=== PATIENT | female | born 1995 | race African-American/Black ===

== ENCOUNTER 2024-04-14 18:35 | Inpatient (IN) | payer OTHER ==
[~2024-04-14] VITALS: Ht 175.3 cm; Wt 72.6 kg
[2024-04-14 18:37] VITALS: O2SAT 97
[2024-04-14] MEDS: ONDANSETRON HCL 4MG/2ML INJ IV STA (19:50)
[2024-04-14] MEDS: SODIUM CHLORIDE 0.9% 1,000 ML IV ONE (19:50)
[2024-04-14] MEDS: KETOROLAC 30MG/ML VIAL IV STA (19:50)
[2024-04-14] MEDS: MORPHINE SULFATE 4 MG/ML INJ (FOR IV/IM USE) IV ONE (21:57)
[2024-04-14] MEDS: METOCLOPRAMIDE HCL 10MG/2ML VIAL IV ONE (22:00)
[2024-04-14 22:06] LABS: BASOPHILS % 0.2 % (0.0-2.0); HEMOGLOBIN. 9.8 g/dL (12.0-16.0); LYMPHOCYTES % 11.9 % (20.0-50.0); MEAN CORPUSCULAR HEMOGLOBIN 26.1 pg (28.0-32.0); MEAN CORPUSCULAR HGB CONC 30.8 g/dL (31.0-37.0); MEAN CORPUSCULAR VOLUME 84.9 fL (81.0-99.0); MEAN PLATELET VOLUME 8.8 fl (7.4-10.4); MONOCYTES % 2.2 % (2.0-8.0); NEUTROPHILS % 85.7 % (40.0-76.0); PLATELET 331 x1000/uL (130-400); RED BLOOD CELL COUNT 3.77 mill/uL (4.2-5.4); RED CELL DISTRIBUTION WIDTH 17.8 % (11.6-14.6); WHITE BLOOD COUNT 4.1 x1000/uL (4.5-11.0)
[2024-04-14 22:17] LABS: CHLORIDE 108 mEq/L (98-107); POTASSIUM 4.4 mEq/L (3.5-5.1); SODIUM 138 mEq/L (136-145)
[2024-04-14 22:18] LABS: CARBON DIOXIDE 16 mEq/L (21-32)
[2024-04-14 22:23] LABS: CREATININE 0.8 mg/dL (0.6-1.0); GLUCOSE 122 mg/dL (70-105)
[2024-04-14 22:24] LABS: UREA NITROGEN BLOOD 5 mg/dL (9-23)
[2024-04-14 22:25] LABS: ALANINE AMINOTRANSFERASE 45 IU/L (10-49); ALBUMIN 5.1 g/dL (3.2-4.8); ASPARTATE AMINOTRANSFERASE 39 IU/L (<34)
[2024-04-14 22:26] LABS: BILIRUBIN DIRECT 0.2 mg/dL (<=3.0); BILIRUBIN TOTAL 0.5 mg/dL (0.1-1.0); PROTEIN TOTAL 8.4 g/dL (6.0-8.3)
[2024-04-14 23:02] LABS: HCG SCREEN NEGATIVE
[2024-04-15] MEDS ORDERED: MORPHINE SULFATE 4 MG/ML INJ (FOR IV/IM USE) IV ONE (01:00)
[2024-04-15 01:26] VITALS: O2SAT 99
[2024-04-15] MEDS ORDERED: HYDROCODONE/ACETAMINOPHEN 5/325MG TABLET PO PRN (03:30)
[2024-04-15 03:57] VITALS: BP 103/79; PULSE 82; RESP 18; TEMP 36.4736
[2024-04-15] MEDS: ONDANSETRON HCL 4MG/2ML INJ IV PRN (04:36)
[2024-04-15 04:49] VITALS: BP 103/79; PULSE 82; RESP 18
[2024-04-15] MEDS: MORPHINE SULFATE 2 MG/ML INJ (NOT FOR IM USE) IV NR (04:49)
[2024-04-15] MEDS: PANTOPRAZOLE 40MG DR TABLET PO SCH (10:17)
== END 2024-04-15 10:35 | disposition left against medical advice (07) | DRG 392 ==
LOC: ER 18:35 → 6EST 23:48 → EDBEDREQ 23:52
PROVIDERS: ADMIT Internal Medicine; ATTEND Internal Medicine
DX: R10.12 Left upper quadrant pain (principal); Z90.49 Acquired absence of other specified parts of digestive tract; K58.9 Irritable bowel syndrome, unspecified; Z53.29 Procedure and treatment not carried out because of patient's decision for other reasons
CPT/HCPCS: 36415; 74176; 76830; 76856; 80048; 80076; 84703; 85025; 99285; J1885; J2270; J2405; J2765; J7030